=== PATIENT | male | born 1985 ===

== ENCOUNTER 2020-02-07 13:10 | Emergency (ER) | payer OTHER ==
--- NOTE | 2020-02-07 13:12 | PDOC ---
Rapid Medical Evaluation Time Seen by Provider: 02/07/20 13:11 Medical Evaluation: 02/07/20 13:11 34 year old male no pmhx presenting with lower back pain. Pt states he was lifting a heavy tool and felt a strain in his back with immedlater pain. No radiation no numbness or tingling. Pe: TTP over lumbar paravertebrals no midline tenderness Plan: Toradol Flexeril Pt to precede to ED for further treatment and care
[2020-02-07 13:14] VITALS: BP 144/88; PULSE 70; TEMP 98.5; BMI 23.5
[2020-02-07] MEDS ORDERED: METHOCARBAMOL 500 MG TABLET PO ONE (13:22)
[2020-02-07] MEDS ORDERED: LIDOCAINE 5% TOPICAL PATCH TP ONE (13:22)
[2020-02-07] MEDS ORDERED: METHOCARBAMOL 500 MG TABLET ONE (13:23)
[2020-02-07] MEDS ORDERED: LIDOCAINE 5% TOPICAL PATCH ONE (13:23)
[2020-02-07] MEDS ORDERED: CYCLOBENZAPRINE HCL 10 MG TABLET (FP) PO ONE (13:30)
[2020-02-07] MEDS ORDERED: KETOROLAC TROMETHAMINE 30 MG/1 ML VIAL IM ONE (13:30)
--- NOTE | 2020-02-07 13:33 | PDOC ---
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 Patient reported using heat to lower back which has been helping lobe and took 2 [id number] Aleve which has been helping. Denies radiculopathy, tingling numbness sensation. Reported spasm is localized to left lower back. Denies urinary frequency, or saddle paresthesia or any other symptoms Occurred: reports: this morning Past History - Medical History Allergies/Adverse Reactions: Allergies Allergy/AdvReac Type Severity Reaction Status Date / Time No Known Allergies Allergy Verified 02/07/20 13:15 Home Medications: Ambulatory Orders Methocarbamol [Robaxin -] 500 mg PO BID PRN #14 tablet 02/07/20 Naproxen 500 mg PO BID PRN #20 tablet 02/07/20 - Psycho-Social/Smoking History Smoking History: Never smoked - Substance Abuse Hx (Audit-C & DAST Scrn) How often the patient has a drink containing alcohol: Never Score: In Men: 4 or > Positive; In Women: 3 or > Positive: 0 Screen Result (Pos requires Nsg. Audit-10AR): Negative Review of Systems - Review of Systems Able to Perform ROS?: Yes Is the patient limited Georgian proficient: No Constitutional: No: Chills, Fever, Malaise HEENTM: No: Symptoms Reported, See HPI, Eye Pain, Blurred Vision, Tearing, Recent change in vision, Double Vision, Cataracts, Ear Pain, Ocular Prothesis, Ear Discharge, Nose Pain, Nose Congestion, Tinnitus, Nose Bleeding, Hearing Loss, Throat Pain, Throat Swelling, Mouth Pain, Dental Problems, Difficulty Swallowing, Mouth Swelling, Other Respiratory: No: Symptoms reported, See HPI, Cough, Orthopnea, Shortness of Breath, SOB with Exertion, SOB at Rest, Stridor, Wheezing, Productive cough, Hemoptysis, Other Cardiac (ROS): No: Symptoms Reported, See HPI, Chest Pain, Edema, Irregular Heart Rate, Lightheadedness, Palpitations, Syncope, Chest Tightness, Other ABD/GI: No: Symptoms Reported, Nausea, Vomiting Musculoskeletal: Yes: Symptoms Reported, See HPI, Back Pain (Left lower back), Muscle Pain (Left lower back spasm) Integumentary: No: Symptoms Reported Neurological: No: Symptoms reported, Numbness, Dizziness All Other Systems: Reviewed and Negative *Physical Exam - Vital Signs Last Vital Signs Temp Pulse Resp BP Pulse Ox 98.5 F 70 16 144/88 99 02/07/20 13:12 02/07/20 13:12 02/07/20 13:12 02/07/20 13:12 02/07/20 13:12 - Physical Exam 02/07/20 13:43 GENERAL: Well developed, well nourished. Awake and alert. No acute distress. PULMONARY: No evidence of respiratory distress. MUSCULOSKELETAL : mild tenderness over posterior paravertebral muscle lumbar spine of L3-L4 on left side. No midline tenderness. No bony deformities SKIN: Warm and dry. Normal capillary refill. No bruising or ecchymosis. NEUROLOGICAL: Alert, awake, appropriate. No motor deficits in the lower extremities. Gait is normal without ataxia. PSYCHIATRIC: Cooperative. Good eye contact. Appropriate mood and affect. General Appearance: Yes: Nourished, Appropriately Dressed. 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 Patient reported using heat to lower back which has been helping lobe and took 2 [id number] Aleve which has been helping. Denies radiculopathy, tingling numbness sensation. Reported spasm is localized to left lower back. Denies urinary frequency, or saddle paresthesia or any other symptoms Exam significant for localized moderate tenderness to left paravertebral muscle of lumbar spine of L3-L4 which is worse with sitting no rotation of the hip to the right. No midline tenderness. No radiculopathy. Patient symptom back spasm. Patient declined Toradol as he already took Valium. Will give Robaxin 500 mg p.o. for spasm and topical lidocaine patch. Patient stable for discharge naproxen as needed for pain Robaxin for spasm with advised to continue doing heat therapy with orthopedic spine follow-up as needed. Patient left department without complication Discharge - Discharge Information Problems reviewed: Yes Clinical Impression/Diagnosis: Back muscle spasm Condition: Stable Disposition: HOME - Admission No - Additional Discharge Information Prescriptions: Naproxen 500 mg PO BID PRN #20 tablet PRN Reason: Back Pain Methocarbamol [Robaxin -] 500 mg PO BID PRN #14 tablet PRN Reason: Back Pain - Follow up/Referral Referrals: Fernando Waller MD, [facility] [Staff Physician] - - Patient Discharge Instructions Patient Printed Discharge Instructions: DI for Back Spasm Additional Instructions: Your symptoms likely from back spasm. Take prescribed medication as prescribed as needed for pain and spasm. Continue with heat therapy to the back as needed and do stretching exercise to prevent back spasm. Follow-up with orthopedic marketing proposal specialist if no improvement in 4 days - Post Discharge Activity
== END 2020-02-07 13:51 | disposition home or self-care (01) ==
LOC: JERFT 13:10
PROC: 3E0233Z Introduction of Anti-inflammatory into Muscle, Percutaneous Approach (ICD-10-PCS; principal; 2020-02-07)
DX: M62.830 Muscle spasm of back (principal)
CPT/HCPCS: 99284-25